=== PATIENT | female | born 1960 | race African-American/Black ===

== ENCOUNTER 2018-03-10 11:58 | Emergency (ER) | payer BC ==
[2018-03-10 12:03] VITALS: TEMP 98.5; BMI 34.1
--- NOTE | 2018-03-10 12:20 | PDOC ---
History of Present Illness - General Chief Complaint: Pain Stated Complaint: BACK PAIN Time Seen by Provider: 03/10/18 12:20 Past History - Past Medical History Allergies/Adverse Reactions: Allergies Allergy/AdvReac Type Severity Reaction Status Date / Time codeine [Codeine] Allergy Severe Difficulty Verified 03/10/18 12:03 Breathing Penicillins Allergy Severe Difficulty Verified 03/10/18 12:03 Breathing wheat [Wheat] Allergy Cough Verified 03/10/18 12:03 CHOCOLATE Allergy Severe Difficulty Uncoded 03/10/18 12:03 Breathing SEAFOOD Allergy Severe Swelling Uncoded 03/10/18 12:03 Home Medications: Ambulatory Orders Amlodipine Besylate [Norvasc -] 10 mg PO DAILY 07/03/12 Atorvastatin Ca [Lipitor] 20 mg PO DAILY 07/03/12 Montelukast Na [Singulair -] 07/03/12 Olmesartan/Hydrochlorothiazide [Benicar Hct 40-12.5 mg Tablet] 1 each PO DAILY 07/03/12 Pioglitazone HCl [Actos] 30 mg PO DAILY 07/03/12 Potassium Chloride [K-Dur -] 10 meq PO DAILY 07/03/12 metFORMIN HCL [Glucophage] 1,000 mg PO DAILY 07/03/12 Ketorolac Tromethamine [Sprix] 1 each NS UTDICT PRN #0 spray 07/05/12 Liraglutide [Victoza -] 1.2 mg SQ DAILY@0700 07/05/12 Anemia: Yes (YEARS AGO) Asthma: Yes Cancer: No Cardiac Disorders: Yes (MITRAL VALVE PROLAPSE) CVA: No COPD: No CHF: No Dementia: No Diabetes: Yes GI Disorders: No Disorders: No HTN: Yes Hypercholesterolemia: Yes Liver Disease: No Seizures: No Thyroid Disease: No - Surgical History Abdominal Surgery: No Appendectomy: No Cardiac Surgery: No Cholecystectomy: No Lung Surgery: No Neurologic Surgery: No Orthopedic Surgery: Yes (ARTHROSCOPIC LEFT KNEE;) - Suicide/Smoking/Psychosocial Hx Smoking Status: Yes Smoking History: Former smoker Have you smoked in the past 12 months: No Number of Cigarettes Smoked Daily: 0 Information on smoking cessation initiated: No Hx Alcohol Use: No Drug/Substance Use Hx: No Substance Use Type: None Hx Substance Use Treatment: No *Physical Exam - Vital Signs Last Vital Signs Temp Pulse Resp BP Pulse Ox 98.5 F 67 18 99/56 99 03/10/18 12:00 03/10/18 12:00 03/10/18 12:00 03/10/18 12:00 03/10/18 12:00 *DC/Admit/Observation/Transfer - Referrals Referrals: Ramila Soria MD [Primary Care Provider] - - Patient Instructions - Post Discharge Activity
--- NOTE | 2018-03-10 13:09 | PDOC ---
History of Present Illness - General Chief Complaint: Pain Stated Complaint: BACK PAIN Time Seen by Provider: 03/10/18 12:20 History Source: Patient Exam Limitations: No Limitations - History of Present Illness Initial Comments: 03/10/18 17:22 Pt is a 57 yo F with PMHx of asthma, HLD, mitral valve prolapse, HTN, DM, R knee tendinitis, recurrent UTI, presenting with Tmax 100.3 (oral) yesterday and L flank pain. The L flank pain is about 4/10, pressure like now, but was initially 8/10 at the onset of her symptoms. Pt had dysuria on Monday and went to [place] urgent [facility] and was placed on bactrim and azo. She took the last dose of bactrim today, and had a change in color of urine but no hematuria. No nausea/vomiting, diarrhea, cough or palpitations. No previous hx of passage of stones. She is diabetic and is on canagliflozin. 4 months ago she also had a UTI that was treated with bactrim. 03/10/18 17:39 Timing/Duration: getting worse Associated Symptoms: reports: fever/chills. denies: chest pain, cough, diaphoresis, headaches, malaise, nausea/vomiting, shortness of breath Past History - Travel Traveled outside of the country in the last 30 days: No Close contact w/someone who was outside of country & ill: No - Past Medical History Allergies/Adverse Reactions: Allergies Allergy/AdvReac Type Severity Reaction Status Date / Time codeine [Codeine] Allergy Severe Difficulty Verified 03/10/18 12:03 Breathing Penicillins Allergy Severe Difficulty Verified 03/10/18 12:03 Breathing wheat [Wheat] Allergy Cough Verified 03/10/18 12:03 CHOCOLATE Allergy Severe Difficulty Uncoded 03/10/18 12:03 Breathing SEAFOOD Allergy Severe Swelling Uncoded 03/10/18 12:03 Home Medications: Ambulatory Orders Amlodipine Besylate [Norvasc -] 10 mg PO DAILY 07/03/12 Atorvastatin Ca [Lipitor] 20 mg PO DAILY 07/03/12 Montelukast Na [Singulair -] 10 mg PO DAILY 07/03/12 Pioglitazone HCl [Actos] 30 mg PO DAILY 07/03/12 metFORMIN HCL [Glucophage] 100 mg PO BID 07/03/12 Amlodipine Besylate [Norvasc -] 10 mg PO DAILY 03/10/18 Canagliflozin [Invokana] 100 mg PO DAILY 03/10/18 Ciprofloxacin 500 mg PO DAILY 5 Days #5 ml 03/10/18 Anemia: Yes (YEARS AGO) Asthma: Yes Cancer: No Cardiac Disorders: Yes (MITRAL VALVE PROLAPSE) CVA: No COPD: No CHF: No Dementia: No Diabetes: Yes GI Disorders: No Disorders: No HTN: Yes Hypercholesterolemia: Yes Liver Disease: No Seizures: No Thyroid Disease: No - Surgical History Abdominal Surgery: No Appendectomy: No Cardiac Surgery: No Cholecystectomy: No Lung Surgery: No Neurologic Surgery: No Orthopedic Surgery: Yes (ARTHROSCOPIC LEFT KNEE;) - Suicide/Smoking/Psychosocial Hx Smoking Status: Yes Smoking History: Former smoker Have you smoked in the past 12 months: No Number of Cigarettes Smoked Daily: 0 Information on smoking cessation initiated: No Hx Alcohol Use: No Drug/Substance Use Hx: No Substance Use Type: None Hx Substance Use Treatment: No *Physical Exam - Vital Signs Last Vital Signs Temp Pulse Resp BP Pulse Ox 98.5 F 67 18 99/56 99 03/10/18 12:00 03/10/18 12:00 03/10/18 12:00 03/10/18 12:00 03/10/18 12:00 ED Treatment Course - LABORATORY CBC & Chemistry Diagram: 03/10/18 13:30 03/10/18 13:30 Medical Decision Making - Medical Decision Making 03/10/18 17:44 CBC, CMP, UA, Urine culture, Spiral CT to R/O stones UA-showed nitrates BUN/Cr-22/1.7- no previous records to compare Iv normal saline 03/10/18 17:45 Patient was placed on ciprofloxacin 500mg daily for 5 days as she has penicillin allergies *DC/Admit/Observation/Transfer Diagnosis at time of Disposition: UTI (urinary tract infection) - Discharge Dispostion Disposition: HOME Condition at time of disposition: Fair Admit: No - Prescriptions Prescriptions: Ciprofloxacin 500 mg PO DAILY 5 Days #5 ml - Referrals Referrals: Ramila Soria MD [Primary Care Provider] - - Patient Instructions Printed Discharge Instructions: DI for Urinary Tract Infection (UTI) Additional Instructions: You were seen here for a fever with L flank pain. You had used bactrim for a urinary tract infection but your urine test still showed infection We are giving you ciprofloxacin 500mg to take by moth daily for the next 5 days Please follow up with your primary doctor If you have worsening fever, Shortness of breath or pain in your abdomen, please return to the emergency room - Post Discharge Activity - Attestations Physician Attestion: 03/10/18 15:09 Pat Adler MD
[2018-03-10] MEDS ORDERED: SODIUM CHLORIDE 1,000 ML IV SCH (13:15)
[2018-03-10] MEDS ORDERED: KETOROLAC TROMETHAMINE 10 MG TABLET PO ONE (13:32)
[2018-03-10 13:44] LABS: URINE APPEARANCE CLEAR; URINE BILIRUBIN NEGATIVE (<2.0 mg/dL); URINE BLOOD NEGATIVE (NEGATIVE); URINE COLOR RED; URINE GLUCOSE (UA) 2+ (NEGATIVE); URINE KETONE NEGATIVE (NEGATIVE); URINE LEUK ESTERASE NEGATIVE (NEGATIVE); URINE NITRITE POSITIVE (NEGATIVE); URINE UROBILINOGEN 4.0 E.U/dl mg/dL (0.2-1.0)
[2018-03-10 13:51] LABS: URINE PROTEIN 1+ (NEGATIVE)
[2018-03-10 14:00] LABS: ALBUMIN 4.6 g/dl (3.4-5.0); ANION GAP 10 (8-16); BILIRUBIN,TOTAL 0.3 mg/dL (0.2-1.0); BLOOD UREA NITROGEN 22 mg/dL (7-18); CALCIUM 9.6 mg/dL (8.5-10.1); CHLORIDE 105 mmol/L (98-107); CO2 26 mmol/L (21-32); CREATININE 1.7 mg/dL (0.55-1.02); EPI CELLS RARE /HPF (FEW); GLUCOSE,RANDOM 89 mg/dL (74-106); POTASSIUM 3.7 mmol/L (3.5-5.1); SGOT/AST 38 U/L (15-37); SGPT/ALT 62 U/L (12-78); SODIUM 141 mmol/L (136-145); TOT PROT 8.9 g/dl (6.4-8.2); URINE MUCUS RARE
[2018-03-10 14:01] LABS: ALK PHOS 122 U/L (45-117)
[2018-03-10 14:08] LABS: EOS % 2.5 % (0-4.5); HEMATOCRIT 44.5 % (32.4-45.2); HEMOGLOBIN 14.7 GM/dL (10.7-15.3); LYMPH % 11.3 % (8-40); MCH 29.8 pg (25.7-33.7); MEAN CELL VOLUME 90.1 fl (80-96); MEAN PLT VOLUME 8.8 fl (7.5-11.1); MONO % 15.7 % (3.8-10.2); NEUT % 69.5 % (42.8-82.8); PLATELET COUNT 281 K/MM3 (134-434); RBC 4.94 M/mm3 (3.60-5.2); RDW 15.3 % (11.6-15.6); WHITE BLOOD COUNT 5.2 K/mm3 (4.0-10.0)
--- NOTE | 2018-03-10 14:19 | PDOC ---
Attending Attestation - [facility] HPI: 03/10/18 14:19 The patient is a 57 year old female, with a significant past medical history of DM and HTN, who presents to the emergency department with, back pain. As per patient, 5 days ago she had LLQ and groin pain ranking an 8/10 which, she went to [facility] for. She reports being prescribed Bactrim and Azo. She reports taking her last dose today. Yesterday the patient reports a fever with a Tmax of 100.3 degrees Fahrenheit. She reports taking Tylenol 7 hours ago which alleviated her right sided flank pain, however, not her left sided flank pain. She ranks her pain as a 4/10. She reports to have called [facility] and who advised her to come to the ED for further evaluation. She denies recent fevers, chills, headache or dizziness. She denies recent vomit , diarrhea or constipation. She denies recent frequency or urgency. She denies recent chest pain or shortness of breath. Past surgical history: None reported. Social history: Nonsmoker. Denies EtOH use and recreational drug use. Primary Care Physician: Dr. Ramila Soria - Physicial Exam PE: 03/10/18 15:40 GENERAL: The patient is awake, alert, and fully oriented, Nontoxic - in no acute distress. HEAD: Normocephalic, atraumatic. EYES: extraocular movements intact, sclera anicteric, conjunctiva clear. ENT: Normal voice, moist mucous membranes. NECK: Normal range of motion, supple without lymphadenopathy, JVD, or masses. LUNGS: Breath sounds equal, clear to auscultation bilaterally. No wheezes, no crackles, no rales. HEART: Regular rate and rhythm, normal S1 and S2 without murmur, rub or gallop. ABDOMEN: Pain in the groin. Soft, nontender, normoactive bowel sounds. No guarding, no rebound. No masses. EXTREMITIES: Normal range of motion, no edema. No clubbing or cyanosis. No cords , erythema, or tenderness. BACK: No left CVA tenderness. NEUROLOGICAL: Fully Oriented, Alert, Normal Mood/Affect, Motor Strength 5/5. No facial assymetry, Normal speech SKIN: Warm, Dry, normal turgor, no rashes or lesions noted. <Ji Florez - Last Filed: 03/10/18 15:40> - Resident Resident Name: Pat Adler I - HPI HPI: I, Dr. Elena Telles, attest that the scribes documentation that appears above has been prepared under my direction and personally reviewed by me. I confirmed that the note above accurately reflects all work, treatment, procedures, and medical decision-making performed by me. Pt seen an examined at bedside, sitting reading a book in ED, Pt c/o some left flank pain but no actual cva tenderness on exam, pt c/o 4/10 back pain at present but denies need for pain meds, will obtain cbc,cmp, ua, urine cx, renal ct to r/o pylenonephritis or kidney stone , will change antibiotics as pt developed fever while on Bactrim and reevalute or dc home 03/10/18 14:40 - Physicial Exam PE: I, Dr. Elena Telles, attest that the scribes documentation that appears above has been prepared under my direction and personally reviewed by me. I confirmed that the note above accurately reflects all work, treatment, procedures, and medical decision-making performed by me. 03/10/18 17:00 - Medical Decision Making 03/10/18 17:00 <Elena Telles - Last Filed: 03/10/18 17:00> Attestations - Attestations 03/10/18 14:19 Documentation prepared by Ji Florez, acting as medical resident for Elena Telles MD. <Ji Florez - Last Filed: 03/10/18 15:40>
[2018-03-10 15:38] VITALS: BP 147/94; PULSE 71
== END 2018-03-10 15:39 | disposition home or self-care (01) ==
LOC: JER 11:58
PROC: 3E0337Z Introduction of Electrolytic and Water Balance Substance into Peripheral Vein, Percutaneous Approach (ICD-10-PCS; principal; 2018-03-10)
DX: N39.0 Urinary tract infection, site not specified (principal); I10 Essential (primary) hypertension; E11.9 Type 2 diabetes mellitus without complications; Z79.84 Long term (current) use of oral hypoglycemic drugs; E78.5 Hyperlipidemia, unspecified; E78.00 Pure hypercholesterolemia, unspecified; Z87.09 Personal history of other diseases of the respiratory system
CPT/HCPCS: 36415; 74176; 80053; 81003; 81015; 85025; 87086; 99283-25; J7030

== ENCOUNTER 2018-09-20 21:02 | Emergency (ER) | payer BC ==
[2018-09-20 21:09] VITALS: BP 121/81; PULSE 67; TEMP 98.6; BMI 33.3
--- NOTE | 2018-09-20 21:17 | PDOC ---
History of Present Illness - General Chief Complaint: Pain Stated Complaint: BACK PAIN Time Seen by Provider: 09/20/18 21:17 - History of Present Illness Initial Comments: 09/20/18 21:57 Ms. Sheikh is a 58 yo female w/ pmh of asthma, HLD, MVP, HTN, DM, recurrent UTI and newly diagnosed diverticulitis who presents for evaluation of 1 day history of sudden onset right sided back pain. Patient reports she went on a cruise a few weeks ago and experienced nausea and vomiting. Was evaluated at urgent care following this and diagnosed with diverticulitis and put on ciprofloxacin and flagyl 4 days ago. Patient was eating [place] when her pain started. Describes pain as sharp on the right side of her back. Has pain with deep inspiration. Also endorses nausea at baseline c/w her diverticulitis. The patient denies chest pain, shortness of breath, headache and dizziness. Denies fever, chills, vomit, diarrhea and constipation. Denies dysuria, frequency, urgency and hematuria. Past History - Past Medical History Allergies/Adverse Reactions: Allergies Allergy/AdvReac Type Severity Reaction Status Date / Time codeine [Codeine] Allergy Severe Difficulty Verified 09/20/18 21:09 Breathing Penicillins Allergy Severe Difficulty Verified 09/20/18 21:09 Breathing wheat [Wheat] Allergy Cough Verified 09/20/18 21:09 CHOCOLATE Allergy Severe Difficulty Uncoded 09/20/18 21:09 Breathing SEAFOOD Allergy Severe Swelling Uncoded 09/20/18 21:09 Home Medications: Ambulatory Orders Atorvastatin Ca [Lipitor] 20 mg PO DAILY 07/03/12 Montelukast Na [Singulair -] 10 mg PO DAILY 07/03/12 Pioglitazone HCl [Actos] 30 mg PO DAILY 07/03/12 Amlodipine Besylate [Norvasc -] 10 mg PO DAILY 03/10/18 Canagliflozin [Invokana] 100 mg PO DAILY 03/10/18 Ciprofloxacin 500 mg PO DAILY 5 Days #5 ml 03/10/18 Metformin HCl [Glucophage] 1,000 mg PO BID 09/20/18 Anemia: Yes (YEARS AGO) Asthma: Yes Cancer: No Cardiac Disorders: Yes (MITRAL VALVE PROLAPSE) CVA: No COPD: No CHF: No Dementia: No Diabetes: Yes GI Disorders: No Disorders: No HTN: Yes Hypercholesterolemia: Yes Liver Disease: No Seizures: No Thyroid Disease: No - Surgical History Abdominal Surgery: No Appendectomy: No Cardiac Surgery: No Cholecystectomy: No Lung Surgery: No Neurologic Surgery: No Orthopedic Surgery: Yes (ARTHROSCOPIC LEFT KNEE;) - Suicide/Smoking/Psychosocial Hx Smoking Status: Yes Smoking History: Former smoker Have you smoked in the past 12 months: No Number of Cigarettes Smoked Daily: 0 Information on smoking cessation initiated: No Hx Alcohol Use: No Drug/Substance Use Hx: No Substance Use Type: None Hx Substance Use Treatment: No Review of Systems - Review of Systems Comments:: 09/20/18 22:04 GENERAL/CONSTITUTIONAL: No fever or chills. No weakness. HEAD, EYES, EARS, NOSE AND THROAT: No change in vision. No ear pain or discharge. No sore throat. CARDIOVASCULAR: No chest pain or shortness of breath RESPIRATORY: No cough, wheezing, or hemoptysis. GASTROINTESTINAL: +Low grade nausea for several days with prior vomiting as described. No diarrhea or constipation. GENITOURINARY: No dysuria, frequency, or change in urination. MUSCULOSKELETAL: +Back pain as described. SKIN: No rash NEUROLOGIC: No headache, vertigo, loss of consciousness, or change in strength/ sensation. ENDOCRINE: No increased thirst. No abnormal weight change HEMATOLOGIC/LYMPHATIC: No anemia, easy bleeding, or history of blood clots. ALLERGIC/IMMUNOLOGIC: No hives or skin allergy. *Physical Exam - Vital Signs Last Vital Signs Temp Pulse Resp BP Pulse Ox 98.6 F 67 18 121/81 99 09/20/18 21:04 09/20/18 21:04 09/20/18 21:04 09/20/18 21:04 09/20/18 21:04 - Physical Exam Comments: 09/20/18 22:05 GENERAL: Awake, alert, and fully oriented, in no acute distress HEAD: No signs of trauma, normocephalic, atraumatic EYES: PERRLA, EOMI, sclera anicteric, conjunctiva clear ENT: Auricles normal inspection, hearing grossly normal, nares patent, oropharynx clear without exudates. Moist mucosa NECK: Normal ROM, supple, no lymphadenopathy, JVD, or masses LUNGS: No distress, speaks full sentences, clear to auscultation bilaterally HEART: Regular rate and rhythm, normal S1 and S2, no murmurs, rubs or gallops, peripheral pulses normal and equal bilaterally. ABDOMEN: +Nonspecific abdominal discomfort c/w diverticulitis w/out focal tenderness; otherwise soft, normoactive bowel sounds. No guarding, no rebound. No masses EXTREMITIES: +Pain exacerbated by shoulder shrug and adduction of arm against resistance. Otherwise normal inspection, normal range of motion, no edema. No clubbing or cyanosis. NEUROLOGICAL: Cranial nerves II through XII grossly intact. Normal speech, normal gait, no focal sensorimotor deficits SKIN: Warm, Dry, normal turgor, no rashes or lesions noted. Heart Score/ECG Review - History History: Slightly suspicious - Electrocardiogram EKG: Normal - Age Age: 45-65 - Risk Factors Risk Factors Heart Score: Yes Hx Hypercholesterolemia, Yes Hx Hypertension, Yes Hx Diabetes, Yes Hx Obesity Based on the list above the patient has:: >/=3 risk factors or Hx atherosclerotic disease - Troponin Troponin: </= normal limit - Score Heart Score - Total: 3 ED Treatment Course - LABORATORY CBC & Chemistry Diagram: 09/20/18 21:55 09/20/18 23:25 Medical Decision Making - Medical Decision Making 09/21/18 00:52 Ms. Sheikh is a 58 yo female w/ pmh as described who presents for evaluation of nonspecific back pain. Given recent travel and synchronicity of pain to eating initial travel included d-dimer, bilateral lower extremity US (r/ o PE and DVT), RUQ US (r/o cholecystitis), CXR and labs. Analgesia also given for pain control. Patient initial imaging all negative; d-dimer elevated as below prompted chest CTA. Patient currently pending further imaging. 09/21/18 02:16 CTA negative for acute findings. CXR negative. EKG negative. Heart score 3. Given negative imaging findings and patient improvement following analgesics concern low for acute process at this time. Discharging patient to home for further outpatient evaluation as needed. *DC/Admit/Observation/Transfer Diagnosis at time of Disposition: Back pain Qualifiers: Back pain location: back pain in unspecified location Chronicity: acute Back pain laterality: unspecified Qualified Code(s): M54.9 - Dorsalgia, unspecified - Discharge Dispostion Disposition: HOME - Referrals Referrals: Ramila Soria MD [Primary Care Provider] - - Patient Instructions Printed Discharge Instructions: DI for Back Spasm Additional Instructions: You were evaluated today in the ER for your back pain. We evaluated you with ultrasound, chest CT, and chest x-ray and were unable to find any emergent causes at this time. Please follow-up with primary care provider in 1-2 days for further evaluation. Return to ER if any increase in pain, fever, chills, or other concerning symptoms. - Post Discharge Activity
[2018-09-20] MEDS ORDERED: ACETAMINOPHEN 1000 MG/100 ML VIAL (NON FORMULARY) IVPB ONE (21:44)
[2018-09-20] MEDS ORDERED: ONDANSETRON 4 MG/2 ML VIAL IVPUSH ONE (21:44)
[2018-09-20] MEDS ORDERED: ONDANSETRON 4 MG/2 ML VIAL ONE (21:49)
[2018-09-20] MEDS ORDERED: ACETAMINOPHEN INJECTION 100 ML IVPB ONE (21:49)
[2018-09-20 22:21] LABS: BASO % 0.7 % (0-2.0); EOS % 2.1 % (0-4.5); HEMATOCRIT 42.2 % (32.4-45.2); HEMOGLOBIN 13.9 GM/dL (10.7-15.3); LYMPH % 25.8 % (8-40); MCH 29.2 pg (25.7-33.7); MEAN CELL VOLUME 88.6 fl (80-96); MEAN PLT VOLUME 8.5 fl (7.5-11.1); MONO % 9.3 % (3.8-10.2); NEUT % 62.1 % (42.8-82.8); PLATELET COUNT 408 K/MM3 (134-434); RBC 4.76 M/mm3 (3.60-5.2); RDW 15.3 % (11.6-15.6); WHITE BLOOD COUNT 8.7 K/mm3 (4.0-10.0)
--- NOTE | 2018-09-20 23:45 | PDOC ---
Attending Attestation - HPI HPI: 09/20/18 23:45 Patient is a 58 year old female with a significant past medical history of asthma, HLD, mitral valve prolapse, HTN, DM, R knee tendinitis, recurrent UTI, who presents to the ED with complaints of right mid back pain that began just prior to ED arrival. Patient reports eating dinner when she was began to experience sudden back pain when reaching for her drink. She reports experiencing associated symptoms of nausea, pain increase deep inspiration and position changes, prompting her to come into the ED for further evaluation. Patient reports being diagnosed with diverticulitis on september 16 and was prescribed cipro and flagyl. She reports taking 800mg of motrin for pain with no relief. Denies chest pain, vomiting. Denies fevers, chills. Denies contact with sick individuals, out of state travelling. Denies dysuria, hematuria. Denies trauma to affected area. Denies any other symptoms. Allergies: Codeine, Penicillin, Wheat, chocolate, seafood. Social history: Lives with . No smoking. No alcohol. No illicit drugs. Surgical history: None PMD: Dr. Soria - Physicial Exam PE: 09/20/18 23:45 Vitals: Triage Vital signs reviewed General Appearance: no acute distress, well nourished well developed Head: Atraumatic Eyes: Pupils equal reactive round, extraocular movement intact Ears: TMs normal bilaterally Nose: Nares patent bilaterally; no nasal congestion Throat: Posterior oropharynx without erythema, mucous membranes moist Neck: Supple; No Nuchal rigidity Chest Wall: Nontender Cardiac: Regular rate and rhythm, no murmurs, no rubs, no gallops Lungs: Clear to auscultation bilateral, good air movement bilaterally Abdomen: Soft, non distended, normal bowel sounds, non tender to palpation Genitourinary: Musculoskeletal: +Mild right sided upper back pain. Rectal: Exam deferred Extremities: Full range of motion to all extremities, no cyanosis, clubbing, or edema Skin: Warm and dry, no rashes or lesions, no rash, no petechiae Neuro: AOX3; Cranial Nerves 2-12 grossly intact, Strength intact to all extremities, Sensation intact to all extremities, gait normal Psych: Normal mood, normal affect <Gato Velasquez - Last Filed: 09/20/18 23:45> - Resident Resident Name: Wayne Allen - ED Attending Attestation I have performed the following: I have examined & evaluated the patient, The case was reviewed & discussed with the resident, I agree w/resident's findings & plan, Exceptions are as noted - Medical Decision Making 09/21/18 02:23 58 years old with asthma hyperlipidemia mitral valve prolapse hypertension diabetes or any tendinitis presents to the ED with right mid back discomfort. No left-sided chest pain no shortness of breath pain is somewhat pleuritic with deep inspiration however there are no overt PE or DVT risk factors EKG is nonischemic there is no tachycardia her troponin was negative her d- dimer was slightly elevated a CTA and Dopplers were performed which were negative for PE At this point patient's heart score 3 normal troponin nonischemic EKG and negative workup in the ED for PE most likely diagnosis at this point is back discomfort Findings discussed with patient she is comfortable returning home she'll return to emergency performed for severe worsening symptoms or for any concerns. <Cem Silva - Last Filed: 09/21/18 02:25> Heart Score/ECG Review - ECG Impressions Comment:: 09/21/18 02:23 EKG performed at 2302. Demonstrates normal sinus rhythm no ST elevations or T- wave inversions. Normal axis. Interpreted by me. <Cem Silva - Last Filed: 09/21/18 02:25>
[2018-09-21 00:39] LABS: ALBUMIN 3.9 g/dl (3.4-5.0); ALK PHOS 88 U/L (45-117); ANION GAP 12 MMOL/L (8-16); BILIRUBIN,TOTAL 0.3 mg/dL (0.2-1); BLOOD UREA NITROGEN 19 mg/dL (7-18); CALCIUM 8.9 mg/dL (8.5-10.1); CHLORIDE 104 mmol/L (98-107); CO2 24 mmol/L (21-32); CREATININE 1.2 mg/dL (0.55-1.3); GLUCOSE,RANDOM 100 mg/dL (74-106); POTASSIUM 3.7 mmol/L (3.5-5.1); SGOT/AST 24 U/L (15-37); SGPT/ALT 46 U/L (13-61); SODIUM 140 mmol/L (136-145); TOT PROT 7.7 g/dl (6.4-8.2)
--- NOTE | 2018-09-21 10:48 | EKG ---
Test Reason : Blood Pressure : / mmHG Vent. Rate : 062 BPM Atrial Rate : 062 BPM P-R Int : 148 ms QRS Dur : 092 ms QT Int : 436 ms P-R-T Axes : 038 028 -01 degrees QTc Int : 442 ms NORMAL SINUS RHYTHM NONSPECIFIC T WAVE ABNORMALITY ABNORMAL ECG WHEN COMPARED WITH ECG OF 05-JUL-2012 12:21, NO SIGNIFICANT CHANGE WAS FOUND Confirmed by TOVA HANNA MD ([id number]) on 09/21/2018 10:48:08 AM Referred By: Confirmed By:TOVA HANNA MD
== END 2018-09-21 02:45 | disposition home or self-care (01) ==
LOC: JER 21:02
PROC: 3E033GC Introduction of Other Therapeutic Substance into Peripheral Vein, Percutaneous Approach (ICD-10-PCS; principal; 2018-09-20)
PROC: 3E033NZ Introduction of Analgesics, Hypnotics, Sedatives into Peripheral Vein, Percutaneous Approach (ICD-10-PCS; 2018-09-20)
DX: M54.89 Other dorsalgia (principal); I10 Essential (primary) hypertension; E11.9 Type 2 diabetes mellitus without complications; Z79.84 Long term (current) use of oral hypoglycemic drugs; J45.909 Unspecified asthma, uncomplicated; K57.92 Diverticulitis of intestine, part unspecified, without perforation or abscess without bleeding
CPT/HCPCS: 36415; 71046-TC-FY; 71275-TC; 76705-TC; 80053; 82550; 84484; 85025; 85379; 93005; 93010; 93970-TC; 99284-25; J0131

== ENCOUNTER 2019-04-15 18:48 | Emergency (ER) | payer BC | END 2019-04-15 19:42 | disposition home or self-care (01) | LOC: JER 18:48 → JERFT 19:42 ==

== ENCOUNTER 2020-10-29 09:38 | Emergency (ER) | payer BC ==
[2020-10-29 10:01] VITALS: BMI 34.2
[2020-10-29] MEDS ORDERED: ACETAMINOPHEN 1000 MG/100 ML VIAL (NON FORMULARY) IVPB ONE (10:32)
[2020-10-29] MEDS ORDERED: ACETAMINOPHEN INJECTION 100 ML IVPB ONE (10:35)
[2020-10-29] MEDS ORDERED: SODIUM CHLORIDE 1,000 ML IV STA (11:15)
[2020-10-29 12:37] LABS: HEMATOCRIT 42.6 % (32.4-45.2); HEMOGLOBIN 13.9 GM/dL (10.7-15.3); MCH 29.5 pg (25.7-33.7); MCHC 32.6 g/dl (32.0-36.0); MEAN CELL VOLUME 90.7 fl (80-96); MEAN PLT VOLUME 9.2 fl (7.5-11.1); PLATELET COUNT 286 K/MM3 (134-434); RDW 15.7 % (11.6-15.6); WHITE BLOOD COUNT 10.1 K/mm3 (4.0-10.0)
[2020-10-29 12:58] LABS: POTASSIUM 3.5 mmol/L (3.5-5.1)
[2020-10-29 13:01] LABS: ALBUMIN 3.8 g/dl (3.4-5.0); CALCIUM 9.1 mg/dL (8.5-10.1)
[2020-10-29 13:02] LABS: BLOOD UREA NITROGEN 13.7 mg/dL (7-18)
[2020-10-29 13:06] LABS: BILIRUBIN,TOTAL 0.9 mg/dL (0.2-1); TOT PROT 7.7 g/dl (6.4-8.2)
[2020-10-29 13:27] LABS: PH,URINE 5.5 (5.0-8.0); URINE APPEARANCE CLEAR; URINE BILIRUBIN NEGATIVE (NEGATIVE); URINE COLOR YELLOW; URINE GLUCOSE (UA) 3+ (NEGATIVE); URINE KETONE NEGATIVE (NEGATIVE); URINE LEUK ESTERASE NEGATIVE (NEGATIVE); URINE NITRITE NEGATIVE (NEGATIVE); URINE PROTEIN NEGATIVE (NEGATIVE); URINE UROBILINOGEN 0.2 mg/dL (0.2-1.0)
[2020-10-29] MEDS ORDERED: metroNIDAZOLE 250 MG TABLET PO ONE (15:37)
[2020-10-29] MEDS ORDERED: SULFAMETHOXAZOLE/TRIMETHOPRIM 800MG/160MG D.S. TABLET PO ONE (15:37)
[2020-10-29] MEDS ORDERED: metroNIDAZOLE 250 MG TABLET ONE (15:54)
[2020-10-29] MEDS ORDERED: SULFAMETHOXAZOLE/TRIMETHOPRIM 800MG/160MG D.S. TABLET ONE (15:54)
[2020-10-29 16:10] VITALS: BP 122/80; PULSE 80; TEMP 99
== END 2020-10-29 16:00 | disposition home or self-care (01) ==
LOC: JER 09:38
PROC: 3E033NZ Introduction of Analgesics, Hypnotics, Sedatives into Peripheral Vein, Percutaneous Approach (ICD-10-PCS; principal; 2020-10-29)
PROC: 3E033GC Introduction of Other Therapeutic Substance into Peripheral Vein, Percutaneous Approach (ICD-10-PCS; 2020-10-29)
DX: K57.92 Diverticulitis of intestine, part unspecified, without perforation or abscess without bleeding (principal)
CPT/HCPCS: 36415; 74177-TC; 80053; 81003; 83605; 83690; 85027; 87086; 99285-25; J0131; Q9967